=== PATIENT | female | born 2000 | race Two or more races ===

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

== ENCOUNTER 2021-01-10 18:55 | Emergency (ER) | payer SELFPAY ==
[2020-09-22 12:40] VITALS: BP 124/88
[~2021-01-10 18:55] MED LIST changes: +CLIN150C16 PO
== END 2021-01-10 19:45 | disposition left against medical advice (07) ==
LOC: ER 18:55
DX: R10.9 Unspecified abdominal pain (principal); Z53.21 Procedure and treatment not carried out due to patient leaving prior to being seen by health care provider

== ENCOUNTER 2021-01-12 20:49 | Emergency (ER) | payer SELFPAY ==
[~2021-01-12] VITALS: Ht 162.6 cm; Wt 68.0 kg
[2021-01-12 21:40] VITALS: BP 111/73
--- NOTE | 2021-01-12 21:57 | ED.ADGEN ---
Past Medical History Past Medical History: No Pertinent History Past Surgical History: No Surgical History Smoking Status: Never Smoker Alcohol Use: None Drug Use: None General Adult EDM: Chief Complaint: ABDOMINAL PAIN IN HPI: HPI: Patient is a 20 year old G4, P2 at approximately 3 months gestational age. Patient states her last menstrual cycle was sometime in September. Just found out 1 week ago that she was by home test. Patient is having 2 days of suprapubic abdominal pain that she describes as "stretching". Denies any vaginal bleeding or discharge. She denies any urinary complaints. Has not seen her [employer] yet for this . Patient's the pain is little bit worse with walking around and movement and better with laying supine. Review of Systems: Review of Systems: All other systems within normal limits except for as noted in the HPI Allergies: Allergies: Allergies Coded Allergies Type Severity Reaction Last Updated Verified No Known Drug Allergies 11/15/14 No Physical Exam: PE: Constitutional: Well developed, well nourished, no acute distress, non-toxic appearance. [] HENT: Normocephalic, atraumatic, bilateral external ears normal, nose normal. [] Eyes: PERRLA, conjunctiva normal, no discharge. [] Neck: No rigidity, supple, no stridor. [] Cardiovascular: Regular rate and rhythm, brisk cap refill [] Lungs & Thorax: Non labored symmetric respirations, no tachypnea or respiratory distress [] Abdomen: Soft, nondistended, guarding on bilateral and midline lower abdominal exam. No rebound Skin: Warm, dry, no erythema, no rash. [] Back: Unremarkable Extremities: No deformities, range of motion grossly intact, no lower extremity edema [] Neurologic: Alert and oriented X 3, no focal deficits noted. [] Psychologic: Affect normal, judgement normal, mood normal. [] Current Patient Data: Labs: Laboratory Tests Test 01/12/21 21:33 01/12/21 22:31 01/12/21 22:40 Urine Collection Type Unknown Urine Color Yellow Urine Clarity Clear Urine pH 6.5 (<5.0-8.0) Urine Specific [place] 1.015 (1.000-1.030) Urine Protein Negative mg/dL (NEG-TRACE) Urine Glucose (UA) Negative mg/dL (NEG) Urine Ketones (Stick) Negative mg/dL (NEG) Urine Blood Negative (NEG) Urine Nitrite Positive (NEG) Urine Bilirubin Negative (NEG) Urine Urobilinogen Dipstick 0.2 mg/dL (0.2 mg/dL) Urine Leukocyte Esterase Large (NEG) Urine RBC 0 /HPF (0-2) Urine WBC 11-20 /HPF (0-4) Urine Squamous Epithelial Cells Mod /LPF Urine Bacteria Many /HPF (0-FEW) Urine Mucus Mod /LPF POC Urine HCG, Qualitative Hcg positive (Negative) White Blood Count 11.4 x10^3/uL (4.0-11.0) H Red Blood Count 5.10 x10^6/uL (3.50-5.40) Hemoglobin 14.1 g/dL (12.0-15.5) Hematocrit 41.1 % (36.0-47.0) Mean Corpuscular Volume 81 fL (79-100) Mean Corpuscular Hemoglobin 28 pg (25-35) Mean Corpuscular Hemoglobin Concent 34 g/dL (31-37) Red Cell Distribution Width 12.8 % (11.5-14.5) Platelet Count 178 x10^3/uL (140-400) Neutrophils (%) (Auto) 59 % (31-73) Lymphocytes (%) (Auto) 33 % (24-48) Monocytes (%) (Auto) 5 % (0-9) Eosinophils (%) (Auto) 3 % (0-3) Basophils (%) (Auto) 1 % (0-3) Neutrophils # (Auto) 6.7 x10^3/uL (1.8-7.7) Lymphocytes # (Auto) 3.7 x10^3/uL (1.0-4.8) Monocytes # (Auto) 0.6 x10^3/uL (0.0-1.1) Eosinophils # (Auto) 0.4 x10^3/uL (0.0-0.7) Basophils # (Auto) 0.1 x10^3/uL (0.0-0.2) Maternal Serum HCG Beta Subunit 06682 mIU/mL (0-5) H Sodium Level 137 mmol/L (136-145) Potassium Level 3.5 mmol/L (3.5-5.1) Chloride Level 103 mmol/L (98-107) Carbon Dioxide Level 24 mmol/L (21-32) Anion Gap 10 (6-14) Blood Urea Nitrogen 7 mg/dL (7-20) Creatinine 0.7 mg/dL (0.6-1.0) Estimated GFR (Cockcroft-Gault) 105.6 BUN/Creatinine Ratio 10 (6-20) Glucose Level 80 mg/dL (70-99) Calcium Level 8.9 mg/dL (8.5-10.1) Total Bilirubin 0.2 mg/dL (0.2-1.0) Aspartate Amino Transferase (AST) 15 U/L (15-37) Alanine Aminotransferase (ALT) 22 U/L (14-59) Alkaline Phosphatase 66 U/L (46-116) Total Protein 7.6 g/dL (6.4-8.2) Albumin 3.0 g/dL (3.4-5.0) L Albumin/Globulin Ratio 0.7 (1.0-1.7) L Lipase 99 U/L (73-393) Laboratory Tests 01/12/21 22:40 Laboratory Tests 01/12/21 22:40 Microbiology 01/12/21 Wet Prep - Final, Complete Vital Signs: Vital Signs Date Time Temp Pulse Resp B/P (MAP) Pulse Ox O2 Delivery O2 Flow Rate FiO2 01/12/21 21:40 98.5 82 16 111/73 (86) 96 Room Air 98.5 EKG: EKG: [] Heart Score: C/O Chest Pain: No Risk Factors: Risk Factors: DM, Current or recent (<one month) smoker, HTN, HLP, family history of CAD, obesity. Risk Scores: Score 0 - 3: 2.5% MACE over next 6 weeks - Discharge Home Score 4 - 6: 20.3% MACE over next 6 weeks - Admit for Clinical Observation Score 7 - 10: 72.7% MACE over next 6 weeks - Early Invasive Strategies Radiology/Procedures: Radiology/Procedures: [facility] [address] [place] [address] IMAGING REPORT Signed PATIENT: TRI JONES ACCOUNT: [id number] : 2000 LOCATION: ER AGE: 20 SEX: F EXAM STATUS: REG ER ORD. PHYSICIAN: HARPAL PICHARDO MD REASON: abd pain, ~3 mo PROCEDURE: OB <14 WKS W/TV US OB <14 WKS +TV History: Reason: abd pain, 3 mo / Spl. Instructions: / History: Comparison: None. Technique: Grayscale and color Doppler imaging of the pelvis was performed using transabdominal technique. Findings: The uterus measures 11.0 x 10.0 x 7.1 cm. Single intrauterine gestational sac with regular appearance. pole is identified with crown-rump length 4.3 cm. Adjustment gestational age by ultrasound 11 weeks 1 day. heart rate 165 bpm. No perigestational fluid collection. Estimated date of delivery by ultrasound August 02, 2021. Right ovary measures 4.1 x 2.5 x 2.0 cm. Normal Doppler flow to the right ovary. Left ovary not identified due to positioning and overlying structures. IMPRESSION: 1. Single intrauterine with gestational age 11 weeks 1 day and heart rate 165 bpm. Electronically signed by: Darrel Jansen DO (01/12/2021 11:40 PM) [facility] DICTATED and SIGNED BY: DARREL JANSEN DO DATE: 01/12/21 [id number] [] Impression: RUN DATE: 01/12/21 [facility] LAB *LIVE* PAGE 1 RUN TIME: 2302 Specimen Inquiry PATIENT: ROBERTTRI ACCT: [id number] LOC: [facility] U: [id number] AGE/SX: ROOM: RE01/12/[address]: HARPAL PICHARDO MD : 2000 BED: DIS: STATUS: REG ER TLOC: SPEC #: [id number] RODOLFO: 01/12/21 STATUS: COMP REQ #: [id number] RECD: 01/12/[address]: HARPAL PICHARDO MD SOURCE: VAGINAL ENTR: 01/12/[address]: SYL URENA SPDESC: ORDERED: WET PREP COMMENTS: Has specimen been collected/obtained? Y Procedure Result WET PREP Final YEAST NONE SEEN TRICHOMONAS NONE SEEN CLUE CELLS CLUE CELLS PRESENT WBCS MODERATE RBCS NO RBCS SEEN SQUAMOUS EPS MANY END OF REPORT Course & Med Decision Making: Course & Med Decision Making Pertinent Labs and Imaging studies reviewed. (See chart for details) [] Kirk Disclaimer: Krik Disclaimer: This electronic medical record was generated, in whole or in part, using a voice recognition dictation system. Departure Departure Impression: Primary Impression: UTI in Additional Impression: Bacterial vaginosis in Disposition: HOME / SELF CARE / HOMELESS Condition: STABLE Referrals: NO PCP (PCP) Patient Instructions: Bacterial Vaginosis, Qmss-nd-Arln Scripts Metronidazole (METRONIDAZOLE) 250 Mg Tablet 1 TAB PO TID for BV for 7 Days, #21 TAB Prov: HARPAL PICHARDO MD 01/13/21 Cephalexin (CEPHALEXIN) 500 Mg Tablet 1 TAB PO BID for UTI for 7 Days, #14 TAB Prov: HARPAL PICHARDO MD 01/13/21 Problem Qualifiers HARPAL PICHARDO MD Jan 12, 2021 21:57
[2021-01-12 22:39] LABS: BILIRUBIN,URINE NEGATIVE (NEG); CLARITY,URINE CLEAR; COLOR,URINE YELLOW; NITRITE,URINE POSITIVE (NEG); PH,URINE 6.5 (<5.0-8.0); PROTEIN,URINE NEGATIVE (NEG-TRACE); UROBILINOGEN,URINE 0.2 mg/dL (0.2 mg/dL)
[2021-01-12 22:51] LABS: RBC,URINE 0 /HPF (0-2)
[2021-01-12 22:52] LABS: BACTERIA,URINE MANY /HPF (0-FEW)
[2021-01-12 22:53] LABS: BASO # 0.1 x10^3/uL (0.0-0.2); BASO % 1 % (0-3); EOS # 0.4 x10^3/uL (0.0-0.7); EOS % 3 % (0-3); HEMATOCRIT 41.1 % (36.0-47.0); HEMOGLOBIN 14.1 g/dL (12.0-15.5); LYMPH # 3.7 x10^3/uL (1.0-4.8); LYMPH % 33 % (24-48); MEAN CORPUSCULAR HEMOGLOBIN 28 pg (25-35); MEAN CORPUSCULAR HGB CONC 34 g/dL (31-37); MEAN CORPUSCULAR VOLUME 81 fL (79-100); MONO # 0.6 x10^3/uL (0.0-1.1); MONO % 5 % (0-9); NEUT # 6.7 x10^3/uL (1.8-7.7); NEUT % 59 % (31-73); PLATELET COUNT 178 x10^3/uL (140-400); RED CELL DISTRIBUTION WIDTH 12.8 % (11.5-14.5); WHITE BLOOD COUNT 11.4 x10^3/uL (4.0-11.0)
[2021-01-12 22:59] LABS: CALCIUM 8.9 mg/dL (8.5-10.1); CREATININE 0.7 mg/dL (0.6-1.0); GFR 105.6; POTASSIUM 3.5 mmol/L (3.5-5.1)
[2021-01-12 23:05] LABS: ALBUMIN/GLOBULIN RATIO 0.7 (1.0-1.7); TOTAL BILIRUBIN 0.2 mg/dL (0.2-1.0); TOTAL PROTEIN 7.6 g/dL (6.4-8.2)
--- NOTE | 2021-01-12 23:42 | RAD ---
US OB <14 WKS +TV History: Reason: abd pain, 3 mo / Spl. Instructions: / History: Comparison: None. Technique: Grayscale and color Doppler imaging of the pelvis was performed using transabdominal techn ique. Findings: The uterus measures 11.0 x 10.0 x 7.1 cm. Single intrauterine gestational sac with regular appearance. pole is identified with crown-rump length 4.3 cm. Adjustment gestational age by ultrasound 11 weeks 1 day. heart rate 165 bpm. No perigestational fluid collection. Estimated date of delivery by ultrasound August 02, 2021. Right ovary measures 4.1 x 2.5 x 2.0 cm. Normal Doppler flow to the right ovary. Left ovary not identified due to positioning and overlying structures. IMPRESSION: 1. Single intrauterine with gestational age 11 weeks 1 day and heart rate 165 bpm. Electronically signed by: Darrel Jansen DO (01/12/2021 11:40 PM) [facility]
[2021-01-13] MEDS ORDERED: CEPH500T PO (00:39)
[2021-01-13] MEDS ORDERED: METR-111 PO (00:39)
[2021-01-14 19:10] LABS: GC PROBE Negative (Negative)
== END 2021-01-13 01:06 | disposition home or self-care (01) ==
LOC: ER 20:49
DX: O23.41 Unspecified infection of urinary tract in pregnancy, first trimester (principal); O23.591 Infection of other part of genital tract in pregnancy, first trimester; B96.89 Other specified bacterial agents as the cause of diseases classified elsewhere; Z3A.11 11 weeks gestation of pregnancy
CPT/HCPCS: 36415; 76801; 76817; 80053; 81001; 81025; 83690; 84702; 85025; 87077; 87086; 87186; 87491; 87591; 99284; Q0111

== ENCOUNTER 2021-03-22 19:51 | Emergency (ER) | payer SELFPAY ==
[~2021-03-22 19:51] MED LIST changes: +CEPH500T PO; +METR-111 PO
== END 2021-03-22 20:38 | disposition left against medical advice (07) ==
LOC: ER 19:51
DX: R50.9 Fever, unspecified (principal); R42 Dizziness and giddiness; Z53.21 Procedure and treatment not carried out due to patient leaving prior to being seen by health care provider

== ENCOUNTER 2021-04-10 11:12 | Emergency (ER) | payer SELFPAY ==
[~2021-04-10] VITALS: Ht 160 cm; Wt 65.0 kg
[2021-04-10 11:20] VITALS: BP 120/69
[2021-04-10] MEDS ORDERED: IV NORMAL SALINE 1000ML BAG 1,000 ML IV ONE (12:00)
[2021-04-10 12:14] LABS: BASO # 0.1 x10^3/uL (0.0-0.2); BASO % 0 % (0-3); EOS # 0.2 x10^3/uL (0.0-0.7); EOS % 1 % (0-3); HEMATOCRIT 35.7 % (36.0-47.0); LYMPH # 1.6 x10^3/uL (1.0-4.8); LYMPH % 10 % (24-48); MEAN CORPUSCULAR HEMOGLOBIN 28 pg (25-35); MEAN CORPUSCULAR HGB CONC 34 g/dL (31-37); MEAN CORPUSCULAR VOLUME 83 fL (79-100); MONO # 0.6 x10^3/uL (0.0-1.1); MONO % 4 % (0-9); NEUT # 12.6 x10^3/uL (1.8-7.7); NEUT % 84 % (31-73); PLATELET COUNT 212 x10^3/uL (140-400); RED BLOOD COUNT 4.29 x10^6/uL (3.50-5.40); RED CELL DISTRIBUTION WIDTH 14.3 % (11.5-14.5); WHITE BLOOD COUNT 15.1 x10^3/uL (4.0-11.0)
[2021-04-10 12:24] LABS: CALCIUM 7.7 mg/dL (8.5-10.1); CREATININE 0.3 mg/dL (0.6-1.0); GFR 280.8; PROTHROMBIN TIME PATIENT 12.6 SEC (11.7-14.0)
[2021-04-10 12:31] LABS: ALBUMIN 2.1 g/dL (3.4-5.0); ALBUMIN/GLOBULIN RATIO 0.4 (1.0-1.7); TOTAL BILIRUBIN 0.2 mg/dL (0.2-1.0)
[2021-04-10] MEDS ORDERED: ONDANSETRON PF 4 MG/2 ML VIAL. IVP ONE (12:45)
[2021-04-10] MEDS ORDERED: MAG HYDROX/ALUMINUM HYD/SIMETH 30 ML ORAL.SUSP PO ONE (12:45)
--- NOTE | 2021-04-10 13:06 | PHYS DOC ---
Past Medical History Past Medical History: No Pertinent History Additional Past Medical Histor: iron-def anemia Past Surgical History: Smoking Status: Never Smoker Alcohol Use: None Drug Use: None General Adult EDM: Chief Complaint: CHEST PAIN HPI: HPI: Patient is a SAB1 23 week 20 year old female who presents to the emergency department with complaints of intermittent chest pains that started at approximately 10:30 this morning. Patient reports waking up this morning at approximately 09:00 feeling fine, shortly afterwards became nauseated and then vomited x 1 noting clear vomitus only. Patient reports she then ate some sugared rice and took her vitamin. Patient noted approximately 20 minutes later the sudden onset of chest pain that she describes as a stabbing pain that radiates from the lower part of her center chest down into her stomach. Patient reports this pain comes on and off lasting less than a minute each time. Patient currently denies any pains of her chest or abdomen, denies nausea. Patient reports she can feel her baby move. Patient states she is worried about her because of her chest pain. Patient denies vaginal discharge or bleeding from her vagina. Patient denies abdominal pain or abdomin al cramping, denies feelings of pelvic contractions, denies seeing blood in her vomitus, urine, or stool. Patient denies headaches, visual disturbances, shortness of breath or difficulty breathing, denies rapid weight gain, denies swelling to her hands feet or face. Patient denies a history of gastric reflux disease or gallbladder disease. Patient denies seizure history. Patient denies a history of preeclampsia with previous pregnancies, denies history of diabetes or gestational diabetes, denies history of IV drug use, smoking, lupus, chronic hypertension or gestational hypertension, denies bleeding disorders, denies history of multifetal gestation. Patient denies increased urinary frequency, urinary pressure, hematuria, painful urination, or dysuria. Patient denies recent fever or chills. Patient reports receiving the COVID-19 virus vaccination at her [employer]IC[facility] office on March 31, 2021 first dose of iW[employer], denies receiving flu vaccine. Patient reports first 2 pregnancies were healthy without any problems, has a 4-year-old and 5-year-old boys, reports her third ended in a miscarriage at approximately 8 weeks gestation in August 2020. Patient reports seeing OB care at [facility], next appointment on April 28, 2021. Patient denies other people in her home with similar symptoms. Patient denies other physical complaints or physical concer ns. Review of Systems: Review of Systems: 14 body systems of review of systems have been reviewed. See HPI for pertinent positives and negative responses, otherwise all other systems are negative, nonpertinent or noncontributory. Constitutional: Negative except as outlined in HPI above. Skin: Negative except as outlined in HPI above. Eyes: Negative except as outlined in HPI above. HENT: Negative except as outlined in HPI above. Respiratory: Negative except as outlined in HPI above. Cardiovascular: Negative except as outlined in HPI above. GI: Negative except as outlined in HPI above. : Negative except as outlined in HPI above. Musculoskeletal: Negative except as outlined in HPI above. Integument: Negative except as outlined in HPI above. Neurologic: Negative except as outlined in HPI above. Endocrine: Negative except as outlined in HPI above. Lymphatic: Negative except as outlined in HPI above. Psychiatric: Negative except as outlined in HPI above. Heart Score: C/O Chest Pain: Yes HEART Score for Chest Pain: HEART Score for Chest Pain Response (Comments) Value History Slighlty/Non-Suspicious 0 ECG Normal 0 Age < 45 0 Risk Factors No Risk Factors 0 Troponin < Normal Limit 0 Total 0 Risk Factors: Risk Factors: DM, Current or recent (<one month) smoker, HTN, HLP, family history of CAD, obesity. Risk Scores: Score 0 - 3: 2.5% MACE over next 6 weeks - Discharge Home Score 4 - 6: 20.3% MACE over next 6 weeks - Admit for Clinical Observation Score 7 - 10: 72.7% MACE over next 6 weeks - Early Invasive Strategies Current Medications: Current Medications Medications (Trade) Dose Ordered Sig/Kaylie Start Time Stop Time Status Last Admin Dose Admin Al Hydroxide/Mg Hydroxide (Mylanta Plus Xs) 30 ml 1X ONCE 04/10/21 12:45 04/10/21 12:46 DC 04/10/21 12:46 30 ML Ondansetron HCl (Zofran) 4 mg 1X ONCE 04/10/21 12:45 04/10/21 12:46 DC 04/10/21 12:46 4 MG Sodium Chloride 1,000 ml @ 1,000 mls/hr 1X ONCE 04/10/21 12:00 04/10/21 12:59 04/10/21 12:20 1,000 MLS/HR Allergies: Allergies: Allergies Coded Allergies Type Severity Reaction Last Updated Verified No Known Drug Allergies 11/15/14 No Physical Exam: PE: Constitutional: Well developed, well nourished, no acute distress, non-toxic appearance. 20-year-old female in no apparent distress. HENT: Normocephalic, atraumatic. Oropharynx moist, pink, no deep tissue infectious process appreciated, patient speaking in normal voice tones, bilateral TMs within normal limits, patent bilateral nasal turbinates. No lymphadenopathy or tenderness appreciated. Eyes: Conjunctiva normal, no discharge. Neck: Normal range of motion, no stridor. Cardiovascular: No cyanosis appreciated, distal cap refill less than 2 seconds. Lungs & Thorax: Patient is in no respiratory distress, lung sounds clear to auscultate all lung wray. Abdomen: Nontender, no abnormalities noted. Soft, round, normal skin color for ethnicity, fundal height at umbilicus. Normal bowel sounds. No abdominal scars appreciated. heart tones per bedside Doppler 163, patient heart rate 77 bpm. No Ahn sign, no pain to the right upper quadrant to palpation, no rebound tenderness, no McBurney's point tenderness, negative psoas sign. Skin: Warm, dry, no erythema, no rash. Back: No tenderness, no deformities. Extremities: No tenderness, no cyanosis, no clubbing, ROM intact, no edema. Neurologic: Alert and oriented X 3, normal motor function, normal sensory function, no focal deficits noted. Psychologic: Affect normal, judgement normal, mood normal. Current Patient Data: Labs: Laboratory Tests Test 04/10/21 11:41 White Blood Count 15.1 x10^3/uL (4.0-11.0) H Red Blood Count 4.29 x10^6/uL (3.50-5.40) Hemoglobin 12.0 g/dL (12.0-15.5) Hematocrit 35.7 % (36.0-47.0) L Mean Corpuscular Volume 83 fL (79-100) Mean Corpuscular Hemoglobin 28 pg (25-35) Mean Corpuscular Hemoglobin Concent 34 g/dL (31-37) Red Cell Distribution Width 14.3 % (11.5-14.5) Platelet Count 212 x10^3/uL (140-400) Neutrophils (%) (Auto) 84 % (31-73) H Lymphocytes (%) (Auto) 10 % (24-48) L Monocytes (%) (Auto) 4 % (0-9) Eosinophils (%) (Auto) 1 % (0-3) Basophils (%) (Auto) 0 % (0-3) Neutrophils # (Auto) 12.6 x10^3/uL (1.8-7.7) H Lymphocytes # (Auto) 1.6 x10^3/uL (1.0-4.8) Monocytes # (Auto) 0.6 x10^3/uL (0.0-1.1) Eosinophils # (Auto) 0.2 x10^3/uL (0.0-0.7) Basophils # (Auto) 0.1 x10^3/uL (0.0-0.2) Platelet Estimate Pending Prothrombin Time 12.6 SEC (11.7-14.0) Prothrombin Time INR 0.9 (0.8-1.1) Activated Partial Thromboplast Time 32 SEC (24-38) Sodium Level 134 mmol/L (136-145) L Potassium Level 4.0 mmol/L (3.5-5.1) Chloride Level 101 mmol/L (98-107) Carbon Dioxide Level 23 mmol/L (21-32) Anion Gap 10 (6-14) Blood Urea Nitrogen 7 mg/dL (7-20) Creatinine 0.3 mg/dL (0.6-1.0) L Estimated GFR (Cockcroft-Gault) 280.8 BUN/Creatinine Ratio 23 (6-20) H Glucose Level 84 mg/dL (70-99) Calcium Level 7.7 mg/dL (8.5-10.1) L Total Bilirubin 0.2 mg/dL (0.2-1.0) Aspartate Amino Transferase (AST) 31 U/L (15-37) Alanine Aminotransferase (ALT) 20 U/L (14-59) Alkaline Phosphatase 103 U/L (46-116) Troponin I High Sensitivity < 4 ng/L (4-50) L Total Protein 7.0 g/dL (6.4-8.2) Albumin 2.1 g/dL (3.4-5.0) L Albumin/Globulin Ratio 0.4 (1.0-1.7) L Lipase 95 U/L (73-393) Laboratory Tests 04/10/21 11:41 Laboratory Tests 04/10/21 11:41 Vital Signs: Vital Signs Date Time Temp Pulse Resp B/P (MAP) Pulse Ox O2 Delivery O2 Flow Rate FiO2 04/10/21 11:20 97.8 74 16 120/69 (86) 100 97.8 EKG: EKG: EKG performed at 1123 by ED nursing staff shows a normal sinus rhythm without ectopy, heart rate 79 bpm, IL interval 0.170, QTc interval 0.418, no acute STEMI, no ACS, no acute ischemia appreciated, EKG interpreted by ED attending ph ysician Dr. Callejas. Radiology/Procedures: Radiology/Procedures: STATUS: REG ER ORD. PHYSICIAN: UZAIR ROBERSON APRN REASON: chest pain 23 weeks PROCEDURE: CHEST AP ONLY XR CHEST 1V CLINICAL INDICATIONS: Reason: chest pain 23 weeks / Spl. Instructions: / History: COMPARISON: January 21, 2017. Findings: No acute lung infiltrate or pleural effusion or pulmonary edema or kristopher g mass or pneumothorax is seen. The heart size, pulmonary vasculature, mediastinum and both gm are unremarkable. IMPRESSION: No acute radiographic abnormality is seen. Electronically signed by: Ben Groves MD (04/10/2021 1:48 PM) [id number] STATUS: REG ER ORD. PHYSICIAN: UZAIR ROBERSON APRN REASON: Gallbladder study, 23 weeks gestation, epigastric pain PROCEDURE: ABDOMEN LTD EXAM: ULTRASOUND ABDOMEN LIMITED CLINICAL HISTORY: Reason: Gallbladder study, 23 weeks gestation, epigastric pain / Spl. Instructions: / History: Vomiting COMPARISON: None available. TECHNIQUE: Limited ultrasound examination of the right upper quadrant of the abdomen was performed. FINDINGS: The midline structures including the pancreas and abdominal aorta and IVC are poorly visualized due to overlying bowel gas. No hepatic mass is seen. Liver measures almost 14 cm in length which is normal. Small amount of biliary sludge is seen within the gallbladder. No gallstone is seen. No gallbladder wall thickening or pericholecystic fluid is evident. The extra hepatic bile duct measures 2 mm in caliber which is normal. The length of the right kidney is 13.3 cm. No hydronephrosis or renal mass or perinephric fluid collection is seen on the right side. IMPRESSION: Mild biliary sludge within the gallbladder. Electronically signed by: Ben Groves MD (04/10/2021 2:54 PM) [id number] Course & Med Decision Making: Course & Med Decision Making Pertinent Labs and Imaging studies reviewed. (See chart for details) 20-year-old female, vital signs reviewed, presents emergency department concerning chest pain after vomiting this morning. Physical examination consistent with gastric reflux versus dyspepsia however will order heart tones, blood pressure monitoring, cardiac monitoring, continuous pulse ox, saline lock, twelve-lead EKG related to chest pain, CBC, CMP, urinalysis assay, troponin I high-sensitivity, lipase, abdominal ultrasound study of the gallbladder, chest x-ray, rapid COVID testing and COVID testing for PCR to rule out preeclampsia/cholelithiasis/cholecystitis. Patient is 23 weeks gestation and complained of chest pain with radiation to epigastric area, considered preeclampsia however low suspicion related to no symptoms of complained headache, blurry vision, right upper quadrant pains, the patient does not appear ill, vital signs within normal limits, the patient is not obese, denies headaches, denies visual disturbances, no seizure-like activity, there is no apparent dyspnea, no wheezing or crackles of the auscultated lung sounds, no proteinuria, no hyperreflexia, no thrombocytopenia, no sign of liver or renal dysfunction per lab work, LFTs within normal limits, no present edema to face or extremities, the patients HEART score is 0, no cli nical evidence of endorgan damage. Because patient did present with complaints of epigastric pain, cholelithiasis and cholecystitis in was considered however low suspicion related to lipase and liver enzymes within normal limits, no concerning signs found on ultrasound study of gallbladder to suggest cholecystitis or cholelithiasis. Considered gastroenteritis however low suspicion of this is related to no reported history of diarrhea, no reported lower abdominal cramping, denies seeing blood in stools, denies constipation. Considered pneumonia component however low suspicion related to no present fever, no abnormal lung sounds auscultated, no infiltrates or concerning signs on chest x-ray. The patient's gallbladder sono study did show mild biliary sludge within the gallbladder, negative for cholecystitis or cholelithiasis, will recommend outpatient follow-up with GI Specialty. The patient's urine shows many urine bacteria, moderate leukocyte esterase with positive urine nitrites, negative for hematuria or ketonuria or proteinuria, will start on Keflex regimen, first dose in the ED today prior to discharge. Will start patient on 20 mg Pepcid p.o. nightly related to epigastric discomfort with the suspicion of dyspepsia. Upon reevaluation of the patient, patient states she has not experienced any further chest/epigastric pains or nausea/vomiting since treated in the ED with normal saline, Zofran, Mylanta. Called and discussed patient case and ED work-up with OB specialist Dr. Uzair Jansen who recommended OB monitoring on the labor and delivery unit after patient is discharged from emergency department. Discussed labs and clinical findings with patient, recommendations of Dr. Jansen for monitoring after discharge from ED, medication antibiotic treatment of asymptomatic urinary tract infection during , side effects of antibiotics, Pepcid regimen for gastric reflux/dyspepsia symptoms. Patient gave verbal understanding of and is amenable to ED discharge planning. Patient will be escorted to the labor delivery unit for monitoring after ED discharge. Spoke with labor and delivery charge nurse Agatha MENDOZA. They're expecting patient after discharge from ED today. Dragon Disclaimer: Dragon Disclaimer: This electronic medical record was generated, in whole or in part, using a voice recognition dictation system. Departure Departure Impression: Primary Impression: Urinary tract infection in mother during second trimester of Additional Impressions: Nausea & vomiting Qualified Codes: R11.2 - Nausea with vomiting, unspecified Epigastric pain during , antepartum Disposition: HOME / SELF CARE / HOMELESS Condition: GOOD Referrals: NO PCP (PCP) FADY FENG MD Patient Instructions: Indigestion, - Urinary Tract Infection Additional Instructions: You were seen today in the emergency department for abdominal discomfort and vomiting this morning. You are 23 weeks , your baby's heart rate is 160, this is safe and healthy. You were treated today with an antinausea medication and Mylanta for indigestion, you had stated this helped and you did not have any return of vomiting, abdominal or chest discomforts since being treated you were also given 1 L normal saline. As we discussed, your sonogram of your gallbladder did show some minor sludge, because of this, we had discussed you following up with a GI physician, I have printed a recommendation to see GI specialist Dr. Griffin, you may call for an appointment to be seen. As we discussed, your urine is infected, I have started you on an antibiotic, please take as directed until completed. It is very important that you follow-up with your primary DENTURE TECHNICIAN specialist and let them know you're being treated for a urinary tract infection so they may reexamine your urine to ensure the infection has cleared. I am also prescribing you Pepcid to take each evening prior to going to bed, this may help with your indigestion type symptoms. Please call and let your DENTURE TECHNICIAN know of your emergency visit today. I had reviewed your case with a DENTURE TECHNICIAN specialist Dr. Jansen who recommends you come up to the labor and delivery unit for monitoring after your discharge from the emergency room today. Someone will take you up there after your discharge from the ER. Thank you for visiting our Emergency Department. It was a pleasure taking care of you today in the [facility] department and we appreciate you trusting us with your care. If any additional problems come up don't hesitate to return to visit us. Please follow up with your primary care provider so they can plan additional care if needed and know about the problem that you had. If symptoms worsen come back to the Emergency Department. Any concerning symptoms that start such as chest pain, shortness of air, weakness or numbness on one side of the body, running high fevers or any other concerning symptoms return to the ER. EMERGENCY DEPARTMENT GENERAL DISCHARGE INSTRUCTIONS Thank you for coming to [facility] Emergency Department (ED) today and trusting us with you care. We trust that you had a positive experience in our Emergency Department. If you wish to speak to the department management, you may call the Director at [phone]. YOUR FOLLOW UP INSTRUCTIONS ARE FOLLOWS: 1. Do you have a private Doctor? If you do not have a private doctor, please ask for a resource list of physicians or clinics that may be able to assist you with follow up care. 2. The Emergency Physicain has interpreted your x-rays. The X-Ray specialist will also review them. If there is a change in the findings, you will be notified in 48 hours when at all possible. 3. A lab test or culture has been done, your results will be reviewed and you will be notified if you need a change in treatment. ADDITIONAL INSTRUCTIONS AND INFORMATION: 1. Your care today has been supervised by a physician who is specially trained in emergency care. Many problems require more than one evaluation for a complete diagnosis and treatment. We recommend that you schedule your follow up appointment as recommended to ensure complete treatment of you illness or injury. If you are unable to obtain follow up care and continue to have a problem, or if your condition worsens, we recommend that you return to the ED. 2. We are not able to safely determine your condition over the phone nor are we able to give sound medical advice over the phone. For these safety reasons, if you call for medical advice we will ask you to come to the ED for further evaluation. 3. If you have any questions regarding these discharge instructions please call the ED at [phone]. SAFETY INFORMATION: In the interest of safety, wellness, and injury prevention; we encourage you to wear your sealbelt, if you smoke; quite smoking, and we encourage family to use a protective helmet for bicycling and other sporting events that present an increased risk for head injury. IF YOUR SYMPTOMS WORSEN OR NEW SYMPTOMS DEVELOP, OR YOU HAVE CONCERNS ABOUT YOUR CONDITION; OR IF YOUR CONDITION WORSENS WHILE YOU ARE WAITING FOR YOUR FOLLOW UP APPOINTMENT; EITHER CONTACT YOUR PRIMARY CARE DOCTOR, THE PHYSICIAN WHOSE NAME AND NUMBER YOU WERE GIVEN, OR RETURN TO THE ED IMMEDIATELY. Scripts Famotidine (FAMOTIDINE) 20 Mg Tablet 20 MG PO HS for indigestion, #30 TAB 0 Refills Prov: UZAIR ROBERSON APRN 04/10/21 Cephalexin (CEPHALEXIN) 500 Mg Tablet 1 TAB PO TID for UTI for 7 Days, #21 TAB 0 Refills Prov: UZAIR ROBERSON APRN 04/10/21 UZAIR ROBERSON APRN Apr 10, 2021 13:06
[2021-04-10 13:28] LABS: % BANDS 2 % (0-9); % EOS 1 % (0-5); % LYMPHS 11 % (24-48); % MONOS 7 % (0-10); % SEGS 79 % (35-66)
[2021-04-10 13:29] LABS: PLT ESTIMATE ADEQUATE (ADEQUATE)
[2021-04-10 13:35] LABS: INFLUENZA A PATIENT NEGATIVE (NEGATIVE); INFLUENZA B PATIENT NEGATIVE (NEGATIVE)
--- NOTE | 2021-04-10 13:51 | RAD ---
XR CHEST 1V CLINICAL INDICATIONS: Reason: chest pain 23 weeks / Spl. Instructions: / History: COMPARISON: January 21, 2017. Findings: No acute lung infiltrate or pleural effusion or pulmonary edema or lung mass or pneumothora x is seen. The heart size, pulmonary vasculature, mediastinum and both gm are unremarkable. IMPRESSION: No acute radiographic abnormality is seen. Electronically signed by: Ben Groves MD (04/10/2021 1:48 PM) [id number]
[2021-04-10 14:19] LABS: BILIRUBIN,URINE NEGATIVE (NEG); CLARITY,URINE CLOUDY; COLOR,URINE YELLOW; NITRITE,URINE POSITIVE (NEG); PROTEIN,URINE NEGATIVE (NEG-TRACE)
[2021-04-10 14:30] LABS: BACTERIA,URINE MANY /HPF (0-FEW); RBC,URINE 0 /HPF (0-2)
--- NOTE | 2021-04-10 14:56 | RAD ---
EXAM: ULTRASOUND ABDOMEN LIMITED CLINICAL HISTORY: Reason: Gallbladder study, 23 weeks gestation, epigastric pain / Spl. Instructions: / History: Vomiting COMPARISON: None available. TECHNIQUE: Limited ultrasound examination of the right upper quadrant of the abdomen was performed. FINDINGS: The midline structures including the pancreas and abdominal aorta and IVC are poorly visualized due t o overlying bowel gas. No hepatic mass is seen. Liver measures almost 14 cm in length which is normal . Small amount of biliary sludge is seen within the gallbladder. No gallstone is seen. No gallbladder wall thickening or pericholecystic fluid is evident. The extra hepatic bile duct measures 2 mm in ca liber which is normal. The length of the right kidney is 13.3 cm. No hydronephrosis or renal mass or perinephric fluid collection is seen on the right side. IMPRESSION: Mild biliary sludge within the gallbladder. Electronically signed by: Ben Groves MD (04/10/2021 2:54 PM) [id number]
[2021-04-10] MEDS ORDERED: FAMO20TA5 PO (15:54)
[2021-04-10] MEDS ORDERED: CEPH500T PO (15:54)
[2021-04-10] MEDS ORDERED: CEPHALEXIN 250 MG CAPSULE. PO STA (15:57)
--- NOTE | 2021-04-10 18:16 | EKG ---
[facility] [address] [place] [id number] Test Date: 2021-04-10 Test Time: 11:23:39 Pat Name: TRI JONES Department: Room: Gender: F Outdoor [employer] Director: : 2000 Requested By: OMA ROBERSON Order Number: [id number] Reading MD: Measurements Intervals [place] Rate: 79 P: 34 FL: 170 QRS: 38 QRSD: 90 T: 9 QT: 364 QTc: 418 Interpretive Statements SINUS RHYTHM NORMAL ECG RI6.02 No previous ECG available for comparison
== END 2021-04-10 16:26 | disposition home or self-care (01) ==
LOC: ER 11:12
DX: O23.42 Unspecified infection of urinary tract in pregnancy, second trimester (principal); N39.0 Urinary tract infection, site not specified; Z3A.23 23 weeks gestation of pregnancy; R07.89 Other chest pain; Z20.822 Contact with and (suspected) exposure to COVID-19
CPT/HCPCS: 36415; 71045; 76705; 80053; 81001; 83690; 84484; 85007; 85025; 85610; 85730; 87086; 93005; 96361; 96374; 99285; J2405; J7030; U0003; U0005; 87077; 87186

== ENCOUNTER 2021-04-10 16:23 | Observation (INO) | payer SELFPAY ==
[2021-04-10 11:20] VITALS: BP 120/69
[~2021-04-10 16:23] MED LIST changes: +FAMO20TA5 PO
--- NOTE | 2021-04-12 10:32 | NUR ---
Attempted to reach patient about test results, was informed I had the wrong phone number.
== END 2021-04-10 17:04 | disposition home or self-care (01) ==
LOC: 3 SO LND 16:23
PROVIDERS: ADMIT Obstetrics & Gynecology; ATTEND Obstetrics & Gynecology
DX: O21.2 Late vomiting of pregnancy (principal); O26.892 Other specified pregnancy related conditions, second trimester; R07.89 Other chest pain; Z3A.23 23 weeks gestation of pregnancy
CPT/HCPCS: 59025; G0378; G0379; 99285-25

== ENCOUNTER 2021-06-22 00:26 | Observation (INO) | payer MEDICAID ==
[2021-06-22] MEDS ORDERED: IV RINGERS,LACTATED 1000ML 1,000 ML IV PRN (00:30)
[2021-06-22 01:10] LABS: BACTERIA,URINE FEW /HPF (0-FEW); WBC,URINE TNTC /HPF (0-4)
== END 2021-06-22 01:47 | disposition home or self-care (01) ==
LOC: 3 SO LND 00:26
PROVIDERS: ADMIT Obstetrics & Gynecology; ATTEND Obstetrics & Gynecology
DX: O26.893 Other specified pregnancy related conditions, third trimester (principal); R30.0 Dysuria; O23.43 Unspecified infection of urinary tract in pregnancy, third trimester; Z3A.33 33 weeks gestation of pregnancy
CPT/HCPCS: 59025; 81001; 87077; 87086; 87186; G0378; G0379

== ENCOUNTER 2021-08-06 23:03 | Observation (INO) | payer MEDICAID ==
[~2021-08-06 23:03] MED LIST changes: -METR-111 PO; +[UNRECOGNIZED DRUG - CODE] PO
[2021-08-06] MEDS ORDERED: IV RINGERS,LACTATED 1000ML 1,000 ML IV PRN (23:45)
[2021-08-07 00:08] LABS: AMNIO PT NEGATIVE
[2021-08-07 00:10] LABS: BACTERIA,URINE FEW /HPF (0-FEW); RBC,URINE 0 /HPF (0-2)
== END 2021-08-07 08:18 | disposition home or self-care (01) ==
LOC: 3 SO LND 23:05
PROVIDERS: ADMIT Obstetrics & Gynecology; ATTEND Obstetrics & Gynecology
DX: O62.9 Abnormality of forces of labor, unspecified (principal); O42.92 Full-term premature rupture of membranes, unspecified as to length of time between rupture and onset of labor; Z3A.39 39 weeks gestation of pregnancy; Z79.899 Other long term (current) drug therapy
CPT/HCPCS: 36415; 59025; 81001; 84112; 87077; 87086; 87186; G0378; G0379

== ENCOUNTER 2021-08-07 12:08 | Inpatient (IN) | payer MEDICAID ==
[~2021-08-07] VITALS: Ht 154.9 cm; Wt 87.9 kg
[2021-08-07] MEDS ORDERED: IV RINGERS,LACTATED 1000ML 1,000 ML IV SCH ×2 (12:30→12:45)
[2021-08-07] MEDS ORDERED: LIDOCAINE 1% PF 30 ML VIAL. INJ PRN (12:45)
[2021-08-07] MEDS ORDERED: OXYTOCIN 30 UNIT/500 ML PREMIX 500 ML IV PRN ×3 (12:45→17:45)
[2021-08-07] MEDS ORDERED: 0.9 % SODIUM CHLORIDE 10 ML DISP.SYRIN. IV PRN ×2 (12:45→17:45)
[2021-08-07] MEDS ORDERED: BUTORPHANOL 2 MG/ML VIAL. IVP PRN ×2 (12:45)
[2021-08-07] MEDS ORDERED: TERBUTALINE 1 MG/ML VIAL. SQ PRN (12:45)
[2021-08-07] MEDS ORDERED: ACETAMINOPHEN 325 MG TABLET. PO PRN ×2 (12:45→17:45)
[2021-08-07 13:07] LABS: BASO # 0.1 x10^3/uL (0.0-0.2); BASO % 1 % (0-3); EOS # 0.1 x10^3/uL (0.0-0.7); EOS % 1 % (0-3); HEMATOCRIT 31.4 % (36.0-47.0); HEMOGLOBIN 9.5 g/dL (12.0-15.5); LYMPH % 15 % (24-48); MEAN CORPUSCULAR HEMOGLOBIN 20 pg (25-35); MEAN CORPUSCULAR HGB CONC 30 g/dL (31-37); MEAN CORPUSCULAR VOLUME 65 fL (79-100); MONO # 0.7 x10^3/uL (0.0-1.1); MONO % 5 % (0-9); NEUT # 10.4 x10^3/uL (1.8-7.7); NEUT % 78 % (31-73); PLATELET COUNT 153 x10^3/uL (140-400); RED BLOOD COUNT 4.84 x10^6/uL (3.50-5.40); RED CELL DISTRIBUTION WIDTH 21.4 % (11.5-14.5); WHITE BLOOD COUNT 13.2 x10^3/uL (4.0-11.0)
[2021-08-07 13:19] VITALS: BP 117/63
[2021-08-07 13:50] LABS: HYPOCHROMIA SLIGHT; MICROCYTOSIS MOD; PLT ESTIMATE ADEQUATE (ADEQUATE); POIKILOCYTOSIS SLIGHT; POLYCHROMASIA SLIGHT
--- NOTE | 2021-08-07 14:30 | PDOC1 ---
TITLE I ASSISTANT H&P Date of Admission: Date of Admission: August 07, 2021 at 12:08 History of Present Illness: EDC: 08/07/21 LMP: 09/30/21 21y @ 40.0 by 10wk u/s who presents to L&D with ctxs. The pt presented early this morning with ctxs but remained unchanged over the course of several hours so she was d/gonzalo home. When the pt returned she was found to be 5-6 cm with regular ctxs. The pts first to were vaginal deliveries. Her last delivery 09/19/20 was a C/S for an IUFD. The Op report states that the incision was made on the lower segment of the uterus, although it was thought to be a 22wk gestation (baby wt of 176 gm). The risk of rupture was discussed with the pt. Explained that her risk was probably higher than the traditional term LTCS. Explained that often prior to 28wks the lower uterine segment is not developed. Discussed the serious potential adverse outcome associated with TOLAC of uterine rupture, which can be associated with serious morbidity, particularly for the in whom uterine rupture can be fatal. The pt states that she understands the risk and would like a vaginal delivery. The pt last delivery was an IUFD due to an abruption. The pt had a Hgb of 4.2 prior to surgery. She had an EBL of 2 L and received 6U pRBC intraop. She went to the ICU PO. The pt began her care at [facility] in [place], but has not been back since May. PMH: Denies PSH: C/S x 1 Meds: PNV All: NKDA OBHx: TSVD x 2, 22wk C/S for IUFD SH: no tob, no EtOH FH: noncontributory Medications: Meds: Current Medications Medications (Trade) Dose Ordered Sig/Kaylie Route PRN Reason Start Time Stop Time Status Last Admin Dose Admin Ringer's Solution 1,000 ml @ 125 mls/hr Q8H IV 08/07/21 12:30 08/07/21 14:04 Butorphanol Tartrate (Stadol) 1 mg PRN Q1HR PRN IVP mild to moderate labor pain 08/07/21 12:45 08/07/21 14:06 Allergies: Coded Allergies: No Known Drug Allergies (Unverified , 8/16/15) Physical Exam: Vital Signs: Vital Signs Date Time Temp Pulse Resp B/P (MAP) Pulse Ox O2 Delivery O2 Flow Rate FiO2 08/07/21 14:06 20 Room Air 08/07/21 13:19 98.5 90 117/63 (81) 98.5 PE: GENERAL: No apparent distress. Alert and oriented. HEENT: Head normocephalic, atraumatic. NECK: Supple LUNGS: Clear to auscultation. HEART: RRR, S1, S2 present, pulses intact ABDOMEN: Soft, positive bowel sounds. EXTREMITIES: No cyanosis or edema. NEUROLOGIC: Normal speech, normal tone PSYCHIATRIC: Normal affect, normal mood. SKIN: No ulceration. FHT: 130s +acels/no decels/mLTV [place]: 5-6 min SVE: 6-7/75/-2 Labs: Laboratory Tests Test 08/07/21 12:34 White Blood Count 13.2 x10^3/uL (4.0-11.0) H Red Blood Count 4.84 x10^6/uL (3.50-5.40) Hemoglobin 9.5 g/dL (12.0-15.5) L Hematocrit 31.4 % (36.0-47.0) L Mean Corpuscular Volume 65 fL (79-100) L Mean Corpuscular Hemoglobin 20 pg (25-35) L Mean Corpuscular Hemoglobin Concent 30 g/dL (31-37) L Red Cell Distribution Width 21.4 % (11.5-14.5) H Platelet Count 153 x10^3/uL (140-400) Neutrophils (%) (Auto) 78 % (31-73) H Lymphocytes (%) (Auto) 15 % (24-48) L Monocytes (%) (Auto) 5 % (0-9) Eosinophils (%) (Auto) 1 % (0-3) Basophils (%) (Auto) 1 % (0-3) Neutrophils # (Auto) 10.4 x10^3/uL (1.8-7.7) H Lymphocytes # (Auto) 2.0 x10^3/uL (1.0-4.8) Monocytes # (Auto) 0.7 x10^3/uL (0.0-1.1) Eosinophils # (Auto) 0.1 x10^3/uL (0.0-0.7) Basophils # (Auto) 0.1 x10^3/uL (0.0-0.2) Platelet Estimate Adequate (ADEQUATE) Large Platelets Occ Polychromasia Slight Hypochromasia Slight Poikilocytosis Slight Microcytosis Mod Macrocytosis Slight Treponema pallidum Antibody Nonreactive (Nonreactive) Laboratory Tests 08/07/21 12:34 Laboratory Tests 08/07/21 12:34 Assessment & Plan: 21y @ 40.0 by 10wk u/s 1.) Active labor 2.) Scant visits Total of 4 visits. Last visit 05/27/21 3.) Prev C/S x 1 Op report states lower transverse uterine inc, but gestation was around 22wks. Risk reviewed with pt who accepts 4.) H/o abruption with IUFD 5.) Daljit NI 6.) TDAP given 05/12/21 7.) Fetus cat I FHT 8.) GBS unk no risk factors OMA CHAVEZ MD August 07, 2021 14:30
--- NOTE | 2021-08-07 17:42 | PDOC4 ---
VAGINAL DELIVERY DATE DATE: 08/07/21 TIME: 17:42 TIME Pt found to be complete at around 1706. At that time pushing initiated. While pushing the pt was in prophylactic Suzette position. Once the head was delivered at 1714, the shoulders could not be delivered with the standard gentle traction. Additional traction was unable to alleviate the dystocia, so suprapubic pressure was applied. At that point the impacted anterior shoulder was reduced and the infant was able to be delivered. The patient delivered a viable male over intact perineum at 1715. Wt 9 lb 0.1 oz. Apgars 8/9. Placenta delivered spontaneously, intact with 3VC. No lacerations noted. Good hemostasis noted. 20 U of Pit given with IVF. EBL 300cc. WEIGHT Weight [ ] OMA CHAVEZ MD August 07, 2021 17:42
[2021-08-07] MEDS ORDERED: diphenhydrAMINE HCL 25 MG CAPSULE PO PRN (17:45)
[2021-08-07] MEDS ORDERED: TDaP (BOOSTRIX) per PROTOCOL. MC PRN (17:45)
[2021-08-07] MEDS ORDERED: MAG HYDROX/ALUMINUM HYD/SIMETH 30 ML ORAL.SUSP PO PRN (17:45)
[2021-08-07] MEDS ORDERED: PHENYLEPH/MINERAL OIL/PETROLAT RECTAL OINTMENT TUBE. RC PRN (17:45)
[2021-08-07] MEDS ORDERED: DOCUSATE SODIUM 100 MG CAPSULE. PO PRN (17:45)
[2021-08-07] MEDS ORDERED: SIMETHICONE 80 MG TAB.CHEW PO PRN (17:45)
[2021-08-07] MEDS ORDERED: MAGNESIUM HYDROXIDE 2,400 MG/30 ML ORAL.SUSP. PO PRN (17:45)
[2021-08-07] MEDS ORDERED: BENZOCAINE 20% TOPICAL AEROSOL SPRAY 57GM CAN. TP PRN (17:45)
[2021-08-07] MEDS ORDERED: ZOLPIDEM 5 MG TABLET. PO PRN (17:45)
[2021-08-07] MEDS ORDERED: MMR per PROTOCOL. MC PRN (17:45)
[2021-08-07] MEDS ORDERED: HYDROCORTISONE 1% TOPICAL OINTMENT 30GM TUBE. TP PRN (17:45)
[2021-08-07] MEDS ORDERED: oxyCODONE/APAP 5/325 1 TAB TABLET PO PRN (17:45)
[2021-08-07] MEDS ORDERED: miSOPROStol 200 MCG TABLET. ONE (19:10)
[2021-08-07] MEDS ORDERED: OXYTOCIN PREMIX 30 UNIT/500 ML NS BAG. IV ONE (19:15)
[2021-08-07] MEDS: IBUPROFEN 400 MG TABLET. PO PRN (19:34)
[2021-08-07 20:14] LABS: BASO # 0.1 x10^3/uL (0.0-0.2); BASO % 1 % (0-3); EOS % 0 % (0-3); HEMATOCRIT 30.6 % (36.0-47.0); HEMOGLOBIN 9.2 g/dL (12.0-15.5); LYMPH # 1.4 x10^3/uL (1.0-4.8); LYMPH % 7 % (24-48); MEAN CORPUSCULAR HEMOGLOBIN 19 pg (25-35); MEAN CORPUSCULAR HGB CONC 30 g/dL (31-37); MEAN CORPUSCULAR VOLUME 65 fL (79-100); MONO % 5 % (0-9); NEUT # 18.8 x10^3/uL (1.8-7.7); NEUT % 88 % (31-73); PLATELET COUNT 157 x10^3/uL (140-400); RED BLOOD COUNT 4.75 x10^6/uL (3.50-5.40); RED CELL DISTRIBUTION WIDTH 21.3 % (11.5-14.5); WHITE BLOOD COUNT 21.3 x10^3/uL (4.0-11.0)
[2021-08-07] MEDS ORDERED: miSOPROStol 200 MCG TABLET. PR ONE (20:30)
[2021-08-07 21:29] LABS: % BANDS 6 % (0-9); % LYMPHS 3 % (24-48); % METAS 1 % (0-0); % MONOS 9 % (0-10); % SEGS 81 % (35-66)
[2021-08-07 21:31] LABS: HYPOCHROMIA SLIGHT; MICROCYTOSIS MOD; PLT ESTIMATE ADEQUATE (ADEQUATE); POIKILOCYTOSIS SLIGHT; POLYCHROMASIA SLIGHT
[2021-08-07 23:00] VITALS: BP 112/67
[2021-08-08 01:13] VITALS: BP 96/50
[2021-08-08 04:13] VITALS: BP 98/65
[2021-08-08 05:35] LABS: HEMATOCRIT 30.2 % (36.0-47.0); HEMOGLOBIN 9.1 g/dL (12.0-15.5); RED BLOOD COUNT 4.67 x10^6/uL (3.50-5.40); RED CELL DISTRIBUTION WIDTH 21.5 % (11.5-14.5); WHITE BLOOD COUNT 16.8 x10^3/uL (4.0-11.0)
[2021-08-08 08:30] VITALS: BP 106/71
[2021-08-08] MEDS: FERROUS SULFATE 325 MG TABLET. PO SCH ×2 (08:37→18:15)
[2021-08-08] MEDS: PRENATAL MULTIVITAMIN TABLET. PO SCH (08:37)
--- NOTE | 2021-08-08 09:13 | PDOC ---
ECONOMIC ANALYST PROGRESS NOTE Date of Service: DATE: 08/08/21 TIME: 09:12 Subjective: Pt with good pain control. Laura PO. Voiding. Minimal lochia Objective: Vital Signs: Vital Signs Date Time Temp Pulse Resp B/P (MAP) Pulse Ox O2 Delivery O2 Flow Rate FiO2 08/07/21 13:19 98.5 90 18 117/63 (81) Room Air 98.5 08/07/21 23:00 97 Vital Signs Date Time Temp Pulse Resp B/P (MAP) Pulse Ox O2 Delivery O2 Flow Rate FiO2 08/08/21 04:13 98.7 95 24 98/65 (76) 98 Room Air 98.7 Labs: Laboratory Tests Test 08/07/21 12:34 08/07/21 14:51 08/07/21 19:28 08/08/21 05:00 White Blood Count 13.2 x10^3/uL (4.0-11.0) H 21.3 x10^3/uL (4.0-11.0) H 16.8 x10^3/uL (4.0-11.0) H Red Blood Count 4.84 x10^6/uL (3.50-5.40) 4.75 x10^6/uL (3.50-5.40) 4.67 x10^6/uL (3.50-5.40) Hemoglobin 9.5 g/dL (12.0-15.5) L 9.2 g/dL (12.0-15.5) L 9.1 g/dL (12.0-15.5) L Hematocrit 31.4 % (36.0-47.0) L 30.6 % (36.0-47.0) L 30.2 % (36.0-47.0) L Mean Corpuscular Volume 65 fL (79-100) L 65 fL (79-100) L 65 fL (79-100) L Mean Corpuscular Hemoglobin 20 pg (25-35) L 19 pg (25-35) L 20 pg (25-35) L Mean Corpuscular Hemoglobin Concent 30 g/dL (31-37) L 30 g/dL (31-37) L 30 g/dL (31-37) L Red Cell Distribution Width 21.4 % (11.5-14.5) H 21.3 % (11.5-14.5) H 21.5 % (11.5-14.5) H Platelet Count 153 x10^3/uL (140-400) 157 x10^3/uL (140-400) 169 x10^3/uL (140-400) Neutrophils (%) (Auto) 78 % (31-73) H 88 % (31-73) H Lymphocytes (%) (Auto) 15 % (24-48) L 7 % (24-48) L Monocytes (%) (Auto) 5 % (0-9) 5 % (0-9) Eosinophils (%) (Auto) 1 % (0-3) 0 % (0-3) Basophils (%) (Auto) 1 % (0-3) 1 % (0-3) Neutrophils # (Auto) 10.4 x10^3/uL (1.8-7.7) H 18.8 x10^3/uL (1.8-7.7) H Lymphocytes # (Auto) 2.0 x10^3/uL (1.0-4.8) 1.4 x10^3/uL (1.0-4.8) Monocytes # (Auto) 0.7 x10^3/uL (0.0-1.1) 1.0 x10^3/uL (0.0-1.1) Eosinophils # (Auto) 0.1 x10^3/uL (0.0-0.7) 0.0 x10^3/uL (0.0-0.7) Basophils # (Auto) 0.1 x10^3/uL (0.0-0.2) 0.1 x10^3/uL (0.0-0.2) Platelet Estimate Adequate (ADEQUATE) Adequate (ADEQUATE) Large Platelets Occ Occ Polychromasia Slight Slight Hypochromasia Slight Slight Poikilocytosis Slight Slight Microcytosis Mod Mod Macrocytosis Slight Slight Treponema pallidum Antibody Nonreactive (Nonreactive) SARS-CoV-2 Antigen (Rapid) Negative (NEGATIVE) Segmented Neutrophils % 81 % (35-66) H Band Neutrophils % 6 % (0-9) Lymphocytes % 3 % (24-48) L Monocytes % 9 % (0-10) Metamyelocytes % 1 % (0-0) H Laboratory Tests 08/07/21 12:34 08/07/21 19:28 08/08/21 05:00 Laboratory Tests 08/08/21 05:00 Physical Exam: GENERAL: No apparent distress. Alert and oriented. HEENT: Head normocephalic, atraumatic. NECK: Supple LUNGS: Clear to auscultation. HEART: RRR, S1, S2 present, pulses intact ABDOMEN: Soft, positive bowel sounds. EXTREMITIES: No cyanosis or edema. NEUROLOGIC: Normal speech, normal tone PSYCHIATRIC: Normal affect, normal mood. SKIN: No ulceration. FFNT below umb No C/C/E Assessment & Plan: A/P 21y PPD #1 s/p 1.) PP doing well 2.) Scant visits 3.) PPH s/p cytotec, minimal lochia now 4.) Hgb 9.5 -> 9.1 5.) Daljit NI 6.) TDAP given 05/12/21 7.) Cont PP care OMA CHAVEZ MD August 08, 2021 09:13
[2021-08-08 13:20] VITALS: BP 102/64
[2021-08-08] MEDS: IBUPROFEN 400 MG TABLET. PO PRN (15:37)
[2021-08-08 17:35] VITALS: BP 115/62
[2021-08-08 20:03] VITALS: BP 107/66
[2021-08-09 02:05] VITALS: BP 105/59
[2021-08-09 05:35] VITALS: BP 114/69
[2021-08-09] MEDS: FERROUS SULFATE 325 MG TABLET. PO SCH (08:15)
[2021-08-09] MEDS: IBUPROFEN 400 MG TABLET. PO PRN (08:15)
[2021-08-09] MEDS: PRENATAL MULTIVITAMIN TABLET. PO SCH (08:15)
[2021-08-09 09:56] VITALS: BP 107/66
--- NOTE | 2021-08-09 11:35 | NUR ---
Dismissal instructions reviewed and signed.
[2021-08-09 11:45] VITALS: BP 111/63
[2021-08-09] MEDS ORDERED: DOCU-109 PO (11:54)
[2021-08-09] MEDS ORDERED: IBUP-1060 PO (11:54)
[2021-08-09] MEDS ORDERED: FERR325T72 PO (11:54)
--- NOTE | 2021-08-09 11:57 | PDOC ---
DIRECTOR OF INTEGRATED MARKETING PROGRESS NOTE Date of Service: DATE: 08/09/21 TIME: 11:55 Subjective: Doing well. Pain well managed with PO meds. independently. Otherwise denies complaints. Objective: Objective: FF@ U/2. Scant lochia. Tr edema to bilateral LE. Vital Signs: Vital Signs Date Time Temp Pulse Resp B/P (MAP) Pulse Ox O2 Delivery O2 Flow Rate FiO2 08/08/21 08:30 98.5 83 16 106/71 (83) 98 Room Air 98.5 Vital Signs Date Time Temp Pulse Resp B/P (MAP) Pulse Ox O2 Delivery O2 Flow Rate FiO2 08/09/21 09:56 98.0 88 20 107/66 (80) 98.0 08/09/21 05:35 98 Room Air Physical Exam: GENERAL: No apparent distress. Alert and oriented. HEENT: Head normocephalic, atraumatic. NECK: Supple LUNGS: Clear to auscultation. HEART: RRR, S1, S2 present, pulses intact ABDOMEN: Soft, positive bowel sounds. EXTREMITIES: No cyanosis or edema. NEUROLOGIC: Normal speech, normal tone PSYCHIATRIC: Normal affect, normal mood. SKIN: No ulceration. Assessment & Plan: instructions, precautions, and warning signs reviewed. f/u 2 weeks PP at [facility] - scheduled 08/23/2021 @ 0900. Rx to pharmacy on chart. NAPOLEON LOPEZ CNM August 09, 2021 11:57
--- NOTE | 2021-08-09 12:30 | NUR ---
To awaiting car. accompanied by , baby and nurses
--- NOTE | 2021-08-10 17:07 | PATHOLOGY ---
[facility] Accession Number: [id number] . 01 Material submitted: . placenta - PLACENTA AND CORD . 01 Clinical history: . V-STEVEN; T2; GA: 40.0; NUCHAL CORD X1; LIMITED CARE . 02 Diagnosis: 701 gram term placenta of an estimated 40 weeks gestation with attached membranes and umbilical cord: - Large placenta (Placental weight at approximate 95th percentile for estimated gestational age). - Focal subchorionic and perivillous fibrin deposition. (JPM:lb; 08/10/2021) [facility] 08/10/2021 1702 Local . 02 Comment: There is no evidence of an acute chorioamnionitis or villitis. There are no infarcts. (SAHARAM:lb; 08/10/2021) . 02 Electronically signed: . Karson Cagle MD, Pathologist NPI- [id number] . 01 Gross description: . Fixative: Formalin Labeled: Placenta Specimen received: [place] placenta with attached membranes and umbilical cord Trimmed placental weight: 701 g Dimensions: 18.2 x 15.6 x 3.8 cm membranes: Ginger Blue-forrester, translucent Site of membrane rupture: At the placental margin surface: Intact displaying a normal arborizing vasculature pattern, as well as focal fibrin deposition Umbilical cord: 59.8 cm in length, 1.0-1.7 cm in diameter Umbilical cord insertion: Central, 7.3 cm from the closest placental margin Number of umbilical vessels: 3 Umbilical cord appearance: White-dhillon to blue-forrester with moderate helical twisting (approximately 3 twists every 5 cm) Maternal surface: Intact and complete Cut surface: Bright red to red-brown Abnormalities: None identified . Slitter Cut Off Operator sections are submitted as follows: . A1 proximal umbilical cord and surface vessels A2 umbilical cord and membrane roll A3-A4 claims customer service representative sections of maternal surface. (CAA; 08/09/2021) [facility]DKA 08/09/2021 1323 Local . 02 Pathologist provided ICD-10: Z3A.40 . 02 CPT . 130138 Specimen Comment: A courtesy copy of this report has been sent to [phone] Specimen Comment: Report sent to Performed at: 01 [facility] [address], [place] [id number] MD Francis Braun MD Phone: [phone] Performed at: 02 [facility] [address] [place], [place] [id number] MD Karson Cagle MD Phone: [phone]
== END 2021-08-09 12:30 | disposition home or self-care (01) | DRG 806 ==
LOC: 3 SO LND 12:08 → OBSVTOIN 12:08 → 3 SO LND 12:21
PROVIDERS: ADMIT Obstetrics & Gynecology; ATTEND Obstetrics & Gynecology
PROC: 10E0XZZ Delivery of Products of Conception, External Approach (ICD-10-PCS; principal; 2021-08-07)
PROC: 3E0DXGC Introduction of Other Therapeutic Substance into Mouth and Pharynx, External Approach (ICD-10-PCS; 2021-08-07)
DX: O34.211 Maternal care for low transverse scar from previous cesarean delivery (principal); O72.1 Other immediate postpartum hemorrhage; Z37.0 Single live birth; Z3A.40 40 weeks gestation of pregnancy; Z20.822 Contact with and (suspected) exposure to COVID-19
CPT/HCPCS: 36415; 85007; 85025; 85027; 86592; 86850; 86900; 86901; 87426; J0595; J2590; J7120; U0003; G0378